=== PATIENT | female | born 1990 | race African-American/Black ===

== ENCOUNTER 2020-06-06 12:56 | Emergency (ER) | payer OTHER ==
[2020-06-06 13:06] VITALS: BMI 21.2
[2020-06-06 14:11] LABS: BASO % 0.7 % (0-2.0); EOS % 0.4 % (0-4.5); HEMATOCRIT 37.7 % (32.4-45.2); HEMOGLOBIN 12.5 GM/dL (10.7-15.3); LYMPH % 30.1 % (8-40); MCH 30.5 pg (25.7-33.7); MCHC 33.3 g/dl (32.0-36.0); MEAN CELL VOLUME 91.6 fl (80-96); MEAN PLT VOLUME 9.9 fl (7.5-11.1); MONO % 6.3 % (3.8-10.2); NEUT % 62.5 % (42.8-82.8); PLATELET COUNT 213 K/MM3 (134-434); RBC 4.11 M/mm3 (3.60-5.2); RDW 12.6 % (11.6-15.6); WHITE BLOOD COUNT 6.8 K/mm3 (4.0-10.0)
[2020-06-06 14:26] LABS: INR 1.19 (0.83-1.09); PROTHROMBIN TIME (PATIENT) 14.3 SEC (9.7-13.0)
[2020-06-06 14:30] LABS: CHLORIDE 105 mmol/L (98-107); POTASSIUM 3.9 mmol/L (3.5-5.1); SODIUM 135 mmol/L (136-145)
[2020-06-06 14:32] LABS: CALCIUM 9.1 mg/dL (8.5-10.1)
[2020-06-06 14:33] LABS: ANION GAP 4 MMOL/L (8-16); CO2 26 mmol/L (21-32); GLUCOSE,RANDOM 85 mg/dL (74-106)
[2020-06-06 14:36] LABS: CREATININE 0.9 mg/dL (0.55-1.3); SGOT/AST 8 U/L (15-37); SGPT/ALT 14 U/L (13-61)
[2020-06-06 14:37] LABS: BILIRUBIN,TOTAL 1.2 mg/dL (0.2-1); TOT PROT 7.9 g/dl (6.4-8.2)
[2020-06-06 14:39] LABS: ALK PHOS 53 U/L (45-117)
[2020-06-06 17:41] VITALS: BP 118/78; PULSE 75; TEMP 98
== END 2020-06-06 17:42 | disposition home or self-care (01) ==
LOC: JER 12:56
DX: R07.9 Chest pain, unspecified (principal)
CPT/HCPCS: 36415; 71046-TC-FY; 71275-TC; 80053; 82550; 84484; 84702; 85025; 85379; 85610; 85730; 93005; 93010; 99285-25